=== PATIENT | female | born 1980 | race Caucasian/White ===

== ENCOUNTER 2020-06-01 21:04 | Inpatient (IN) | payer MEDICAID ==
[~2020-06-01] VITALS: Ht 157.5 cm; Wt 68.1 kg
[2020-06-01] MEDS ORDERED: IV NS 0.9% 500 ML BAG IV ONE (22:00)
[2020-06-01] MEDS ORDERED: ONDANSETRON HCL/PF 4 MG/2 ML VIAL IVP ONE (22:00)
[2020-06-01] MEDS ORDERED: MORPHINE SULFATE INJ 2 MG/ML DISP.SYRIN IV ONE (22:00)
[2020-06-01] MEDS ORDERED: LEVOFLOXACIN 750 MG /D5W 150ML PIGGYBACK IV ONE (22:00)
[2020-06-01] MEDS ORDERED: ONDANSETRON HCL/PF 4 MG/2 ML VIAL ONE (23:02)
[2020-06-01] MEDS ORDERED: MORPHINE SULFATE INJ 4 MG/ML DISP.SYRIN ONE (23:02)
[2020-06-01] MEDS ORDERED: LEVOFLOXACIN 750 MG /D5W 150ML 150 ML IV ONE (23:02)
[2020-06-01 23:16] LABS: BASOPHILS # (AUTO) 0.1 /CMM (0.0-0.2); BASOPHILS % (AUTO) 0.3 % (0.0-2.0); EOSINOPHILS % (AUTO) 0.3 % (0.0-6.0); HEMATOCRIT 41 % (33-45); HEMOGLOBIN 13.6 g/dL (11.5-14.8); LYMPHOCYTES # (AUTO) 1.4 /CMM (0.8-4.8); LYMPHOCYTES % (AUTO) 8.1 % (20.0-44.0); MEAN CORPUSCULAR HGB CONC 34 g/dl (31.0-36.0); MEAN CORPUSCULAR VOLUME 89 fL (82-100); MONOCYTES # (AUTO) 1.1 /CMM (0.1-1.30); MONOCYTES % (AUTO) 6.2 % (2.0-12.0); NEUTROPHILS # (AUTO) 14.9 /CMM (1.8-8.9); NEUTROPHILS % (AUTO) 85.1 % (43.0-81.0); PLATELET COUNT (AUTO) 229 /CMM (150-450); RED BLOOD CELL COUNT(AUTO) 4.54 MIL/uL (4.0-5.2); WHITE BLOOD COUNT (AUTO) 17.6 K/uL (4.3-11.0)
--- NOTE | 2020-06-01 23:34 | NUR ---
URINE COLLECTED. SENT TO LAB
[2020-06-01 23:36] LABS: CALCIUM, SERUM 9.2 mg/dL (8.5-10.1); CARBON DIOXIDE 19 mmol/L (21-32); CHLORIDE 101 mmol/L (98-107); CREATININE 1.1 mg/dL (0.6-1.3); GLUCOSE 133 mg/dL (74-106); POTASSIUM 3.7 mmol/L (3.5-5.1); SODIUM SERUM 136 mmol/L (136-145); UREA NITROGEN, BLOOD 32 mg/dL (7-18)
[2020-06-01 23:44] LABS: ALANINE AMINOTRANSFERASE 94 U/L (12-78); ALBUMIN 4.2 g/dL (3.4-5.0); ALKALINE PHOSPHATASE 62 U/L (46-116); ASPARTATE AMINOTRANSFERASE 172 U/L (15-37); BILIRUBIN,DIRECT 0.2 mg/dL (0.0-0.2); BILIRUBIN,TOTAL 0.9 mg/dL (0.2-1.0); TOTAL PROTEIN, SERUM 7.9 g/dL (6.4-8.2)
[2020-06-01 23:54] LABS: BILIRUBIN,URINE NEGATIVE (NEGATIVE); COLOR,URINE YELLOW (YELLOW); LEUKOCYTE ESTERASE ,URINE NEGATIVE (NEGATIVE); NITRITE, URINE NEGATIVE (NEGATIVE); PROTEIN,URINE 30 mg/dl (NEGATIVE); UGLUCOSE NEGATIVE (NEGATIVE); UROBILINOGEN,URINE 0.2 EU/dL (0.2)
[2020-06-02] MEDS ORDERED: ZOLPIDEM TARTRATE 5 MG TABLET PO PRN
[2020-06-02] MEDS ORDERED: ACETAMINOPHEN 325 MG TABLET PO PRN
[2020-06-02] MEDS ORDERED: MAGNESIUM HYDROXIDE 30 ML UDC PO PRN
[2020-06-02] MEDS ORDERED: MAG HYDROX/AL HYDROX/SIMETH 30 ML UDC PO PRN
[2020-06-02] MEDS ORDERED: Z GUARD REMEDY 2 OZ OINT TP PRN
[2020-06-02] MEDS ORDERED: KETOROLAC TROMETHAMINE INJ 30 MG/ML VIAL IV PRN
--- NOTE | 2020-06-02 00:08 | NUR ---
M/S 307-2
--- NOTE | 2020-06-02 00:21 | NUR ---
REPORT GIVEN TO BARRY
[2020-06-02 00:24] VITALS: BP 103/60
[2020-06-02 00:28] LABS: BACTERIA,URINE 2+ /HPF (None Seen); MUCUS,URINE Moderate /LPF (None Seen); SQUAMOUS EPITHELIAL CELL,UR Many /HPF (None Seen); URINE AMORPHOUS URATE Many /HPF (None Seen)
--- NOTE | 2020-06-02 00:35 | NUR ---
pt was transferred to the third floor in stable condition.
[2020-06-02] MEDS: HYDROMORPHONE INJ 2 MG/ML DISP.SYRIN IV PRN ×6 (01:02→21:17)
--- NOTE | 2020-06-02 01:02 | NUR ---
RN MS NOTES PATIENT C/O 9/10 PAIN IN BOTH EARS. PATIENT WAS GIVEN 1MG OF DILAUDID IV. WILL CONTINUE TO MONITOR THE PATIENT.
[2020-06-02] MEDS: IV 1/2NS 1000 ML 1,000 ML IV PRN ×2 (05:01→17:48)
--- NOTE | 2020-06-02 05:41 | NUR ---
RN MS NOTES PATIENT C/O 9/10 PAIN IN BOTH EARS. PATIENT WAS GIVEN 1MG OF DILAUDID IV. WILL CONTINUE TO MONITOR THE PATIENT.
[2020-06-02 05:57] VITALS: BP 103/60
[2020-06-02 06:12] LABS: BASOPHILS % (AUTO) 0.2 % (0.0-2.0); EOSINOPHILS % (AUTO) 1.5 % (0.0-6.0); HEMATOCRIT 38 % (33-45); HEMOGLOBIN 12.8 g/dL (11.5-14.8); LYMPHOCYTES # (AUTO) 1.8 /CMM (0.8-4.8); LYMPHOCYTES % (AUTO) 12.4 % (20.0-44.0); MEAN CORPUSCULAR HGB CONC 34 g/dl (31.0-36.0); MEAN CORPUSCULAR VOLUME 89 fL (82-100); MONOCYTES # (AUTO) 1.1 /CMM (0.1-1.30); MONOCYTES % (AUTO) 7.2 % (2.0-12.0); NEUTROPHILS # (AUTO) 11.6 /CMM (1.8-8.9); NEUTROPHILS % (AUTO) 78.7 % (43.0-81.0); PLATELET COUNT (AUTO) 223 /CMM (150-450); RED BLOOD CELL COUNT(AUTO) 4.28 MIL/uL (4.0-5.2); WHITE BLOOD COUNT (AUTO) 14.7 K/uL (4.3-11.0)
[2020-06-02 06:56] LABS: CALCIUM, SERUM 8.9 mg/dL (8.5-10.1); MAGNESIUM 2.3 mg/dL (1.8-2.4); PHOSPHORUS 3.7 mg/dL (2.5-4.9); POTASSIUM 3.6 mmol/L (3.5-5.1)
[2020-06-02 07:02] LABS: THYROID STIMULATING HORMONE 0.735 uIU/mL (0.358-3.74)
[2020-06-02 07:05] LABS: CREATININE 0.8 mg/dL (0.6-1.3)
--- NOTE | 2020-06-02 07:35 | NUR ---
MS/RN OPENING NOTES PATIENT IS ON BED AWAKE ALERT AND ORIENTED X4. PATIENT IS ON ROOM AIR SATURATION 99%. PATIENT COMPLAINED OF PAIN RATED 8/10. PATIENT IN NO APPARENT RESPIRATORY DISTRESS NOTED. WELL CONTINUE TO MONITOR.
--- NOTE | 2020-06-02 07:48 | NUR ---
MS WET CLEANER MACHINE NOTES PATIENT ADMITTED TO UNIT VIA [facility] AT APPROXIMATELY 0024 BY EMT NATASHA AND REPORT WAS GIVEN BY EMERGENCY ROOM NURSE CAROL. PT WAS ABLE TO STAND UP AND WALK FROM [facility] TO BED. PT ORIENTED TO STARF AND ROOM. PT IS ALERT AND ORIENTED X3. PATIENT IS ABLE TO MAKE HER NEEDS KNOWN. PT IS ON ROOM AIR WITH BREATHING IS EVEN AND UNLABORED. PT HAS AN IV ACCESS ON HER LEFT THUMB. IV ACCESS IS INTACT AND PATENT. WILL CONTINUE TO MONITOR THE PATIENT.
--- NOTE | 2020-06-02 07:53 | NUR ---
MS RN CLOSING NOTES PT IS ALERT AND ORIENTED X3. PATIENT IS ABLE TO MAKE HER NEEDS KNOWN. PT IS ON ROOM AIR WITH BREATHING IS EVEN AND UNLABORED. PT HAS AN IV ACCESS ON HER LEFT THUMB. IV ACCESS IS INTACT AND PATENT. WILL CONTINUE TO MONITOR THE PATIENT.
[2020-06-02 08:00] VITALS: BP 131/57
--- NOTE | 2020-06-02 09:04 | NUR ---
WOUND CARE CONSULT: PT PRESENTS WITH BILATERAL EARS PURULENT DRAINAGE AND ENTIRE EARS RED AND PAINFUL PER PT REPORT. RECOMMEND SURGICAL CONSULT. DR DOUGLAS MAURER NOTIFIED OF CONSULT REQUEST. RECOMMENDATIONS MADE FOR SKIN PROTECTION AND WOUND CARE. DISCUSSED WITH NURSING STAFF.
--- NOTE | 2020-06-02 09:15 | NUR ---
MS/RN NOTES VTE SCORE 3 DR. MALDONADO IS AWARE NO NEW ORDER AT THIS TIME, PER DR. MALDONADO NO NEED FOR CHEMICAL PROPHYLAXIS PATIENT IS AMBULATORY.
--- NOTE | 2020-06-02 15:04 | NUR ---
Housekeeping Associate note: instructional services librarian requested to discuss discharge plan with the patient. Patient stated that she plans to return to her prior living arrangement at [address] [place] [id number]; [phone]. Patient stated she was living in [place] "seven months ago" and moved to [place] where she currently lives with a roommate. Patient does not require transportation to return to her living arrangement. No SS intervention needed at this time, however SS will remain available as needed.
[2020-06-02 16:00] VITALS: BP 109/69
[2020-06-02] MEDS: ONDANSETRON HCL/PF 4 MG/2 ML VIAL IVP PRN ×2 (17:45→23:30)
--- NOTE | 2020-06-02 19:04 | NUR ---
MS/RN NOTES PATIENT IS ON BED ALERT AND ORIENTED X4. PATIENT IN NO APPARENT RESPIRATORY DISTRESS NOTED. ALL DUE MEDICATIONS WAS GIVEN. SEEN AND EXAMINED BY MD WITH ORDERS MADE AND CARRIED OUT. WILL ENDORSED TO ENTRY LEVEL FOR MALDONADO.
[2020-06-02 20:00] VITALS: BP 106/66
--- NOTE | 2020-06-02 20:00 | NUR ---
MS RN OPENING NOTE RECEIVED PT AWAKE IN BED. A/O X4. PT IS STABLE ON ROOM AIR. NO SOB NOTED. NO S/S OF RESPIRATORY DISTRESS. PT IS AMBULATORY WITH BRP. PT HAS NO C/O PAIN AT THIS TIME. IV ACCESS IN LEFT THUMB #24G, RUNNING 1/2 NS @ 75 ML/HR. IV IS INTACT AND PATENT. SAFETY MEASURES MAINTAINED. BED IN LOWEST LOCKED POSITION, HOB ELEVATED, SIDE RAILS UP X2. CALL LIGHT AND TABLE WITHIN REACH. WILL CONTINUE WITH PLAN OF CARE.
--- NOTE | 2020-06-02 21:17 | NUR ---
RN NOTES COMPLAINED BILATERAL EARS PAIN AND HYPERACIDITY, DILAUDID 1MG IV GIVEN FOR PAIN V/S STABLE AND MAALOX FOR HYPERACIDITY,
[2020-06-02] MEDS ORDERED: LEVOFLOXACIN 500 MG /D5W 100ML 500 MG/100 ML PIGGYBACK IV ONE (23:00)
[2020-06-02] MEDS: HYDROCODONE/APAP 5/325MG TABLET PO PRN (23:11)
--- NOTE | 2020-06-02 23:11 | NUR ---
MS RN PAIN PT C/O BURNING PAIN IN RIGHT EAR, RATED 7/10. PT WAS MOANING AND GRASPING SITE. VS STABLE. PER PT REQUEST, ADMINISTERED NORCO 5-325 1 TAB PO Q4H PRN AT THIS TIME. WILL CONTINUE TO MONITOR.
[2020-06-02] MEDS: LEVOFLOXACIN 500 MG /D5W 100ML 500 MG in PREMIX 1 EA IV SCH (23:22)
--- NOTE | 2020-06-02 23:30 | NUR ---
RN NOTES COMPLAINED OF FEELING NAUSEOUS- ZOFRAN 4 MG IV GIVEN ORDERED, V/S STABLE
[2020-06-03] MEDS: HYDROMORPHONE INJ 2 MG/ML DISP.SYRIN IV PRN ×6 (01:07→23:24)
--- NOTE | 2020-06-03 01:22 | NUR ---
RN NOTES COMPLAINED OF BILATERAL EARS PAIN- DILAUDID 1MG IV GIVEN ORDERED, V/S STABLE..
--- NOTE | 2020-06-03 05:40 | NUR ---
RN NOTES COMPLAINED BILATERAL EARS PAIN- DILAUDID 1MG IV GIVEN ORDERED, V/S STABLE
[2020-06-03 06:07] LABS: CALCIUM, SERUM 8.2 mg/dL (8.5-10.1); CREATININE 0.7 mg/dL (0.6-1.3)
--- NOTE | 2020-06-03 06:39 | NUR ---
MS RN CLOSING NOTE PT IS AWAKE IN BED AT THIS TIME. A/0 X4. PT IS STABLE ON ROOM AIR. NO SOB NOTED. NO S/S OF RESPIRATORY DISTRESS. IV ACCESS IS INTACT, PATENT, AND FLUSHING WELL. ALL NEEDS HAVE BEEN MET. PAIN MANAGEMENT ADMINISTERED PER ORDER. SAFETY PRECAUTIONS MAINTAINED AT ALL TIMES. BED IN LOWEST LOCKED POSITION, HOB ELEVATED, SIDE RAILS UP X2. CALL LIGHT AND TABLE WITHIN REACH. WILL ENDORSE TO ONCOMING NURSE FOR CONTINUITY OF CARE.
--- NOTE | 2020-06-03 07:30 | NUR ---
MS RN OPENING NOTE PT IS AWAKE IN BED AT THIS TIME. A/0 X4. PT IS STABLE ON ROOM AIR. NO SOB NOTED. NO S/S OF RESPIRATORY DISTRESS. IV ACCESS IS INTACT, PATENT, AND FLUSHING WELL. PATIENT HAS HEIDY R EAR WOUNDS WITH WRAP. SAFETY PRECAUTIONS MAINTAINED AT ALL TIMES. BED IN LOWEST LOCKED POSITION, HOB ELEVATED, SIDE RAILS UP X2. CALL LIGHT AND TABLE WITHIN REACH. WILL CONTINUE TO MONITOR
[2020-06-03 08:00] VITALS: BP 84/60
--- NOTE | 2020-06-03 08:22 | NUR ---
RN NOTES PATIENT COMPLAINED OF PAIN IN BILATERAL EARS 08/21. WILL GIVE PAIN MEDICATION ORDERED AND WILL REASSESS PAIN.
[2020-06-03] MEDS: HYDROCODONE/APAP 5/325MG TABLET PO PRN ×2 (08:25→13:39)
--- NOTE | 2020-06-03 11:21 | NUR ---
PATIENT COMPLAINED OF PAIN 8/10. GAVE PAIN MEDICATION ORDERED. PATIENT'S CURRENT IV IS IN THE THUMB SHE ASKED US TO REINSERT. PATIENT REFUSED NORMAL IV INSERTION. SHE IS REQUESTING MIDLINE. DR. SHELTON ALREADY AGREED TO MIDLINE. WILL CONTINUE TO MONITOR PAIN
[2020-06-03 11:47] LABS: BASOPHILS % (AUTO) 0.3 % (0.0-2.0); EOSINOPHILS % (AUTO) 1.7 % (0.0-6.0); HEMATOCRIT 37 % (33-45); HEMOGLOBIN 12.4 g/dL (11.5-14.8); LYMPHOCYTES # (AUTO) 1.5 /CMM (0.8-4.8); LYMPHOCYTES % (AUTO) 17.7 % (20.0-44.0); MEAN CORPUSCULAR HGB CONC 34 g/dl (31.0-36.0); MEAN CORPUSCULAR VOLUME 89 fL (82-100); MONOCYTES # (AUTO) 0.7 /CMM (0.1-1.30); NEUTROPHILS # (AUTO) 6.3 /CMM (1.8-8.9); NEUTROPHILS % (AUTO) 72.3 % (43.0-81.0); PLATELET COUNT (AUTO) 191 /CMM (150-450); WHITE BLOOD COUNT (AUTO) 8.7 K/uL (4.3-11.0)
[2020-06-03 16:00] VITALS: BP 92/67
--- NOTE | 2020-06-03 18:40 | NUR ---
MS RN CLOSING NOTES PT IS AWAKE IN BED AT THIS TIME. A/0 X4. PT IS STABLE ON ROOM AIR. NO SOB NOTED. NO S/S OF RESPIRATORY DISTRESS. IV ACCESS IS INTACT, PATENT, AND FLUSHING WELL. PATIENT HAS HEIDY R EAR WOUNDS WITH WRAP WAS CHANGED AND WOUND CARE PROVIDED DURING SHIFT. PAIN MEDICATION GIVEN PER ORDER. ALL NEEDS MET THROUGHOUT SHIFT. SAFETY PRECAUTIONS MAINTAINED AT ALL TIMES. BED IN LOWEST LOCKED POSITION, HOB ELEVATED, SIDE RAILS UP X2. CALL LIGHT AND TABLE WITHIN REACH. WILL ENDORSE TO NEXT SHIFT.
--- NOTE | 2020-06-03 19:27 | NUR ---
RN NOTES PT IS AWAKE IN BED AT THIS TIME. A/0 X4. PT IS STABLE ON ROOM AIR. NO SOB NOTED. NO S/S OF RESPIRATORY DISTRESS. IV ACCESS IS INTACT, PATENT, AND FLUSHING WELL. PATIENT HAS HEIDY R EAR WOUNDS WITH WRAP INTACT. ALL NURSING NEEDS MET AT THIS TIME. SAFETY PRECAUTIONS MAINTAINED AT ALL TIMES. BED IN LOWEST LOCKED POSITION, HOB ELEVATED, SIDE RAILS UP X2. CALL LIGHT AND TABLE WITHIN REACH WILL CONTINUE TO MONITOR.
[2020-06-03 20:00] VITALS: BP 99/67
[2020-06-04] MEDS: LEVOFLOXACIN 500 MG /D5W 100ML 500 MG in PREMIX 1 EA IV SCH ×2 (00:23→23:07)
[2020-06-04] MEDS: HYDROMORPHONE INJ 2 MG/ML DISP.SYRIN IV PRN ×6 (03:30→23:41)
--- NOTE | 2020-06-04 05:52 | NUR ---
RN NOTES PT REFUSED AM LABS NOW WANTS TO HAVE THEM DONE LATER AFTER BREAKFAST. WILL CONTINUE TO MONITOR.
--- NOTE | 2020-06-04 06:29 | NUR ---
RN NOTES PT IS AWAKE IN BED AT THIS TIME. A/0 X4. PT IS STABLE ON ROOM AIR. NO SOB NOTED. NO S/S OF RESPIRATORY DISTRESS. IV ACCESS IS INTACT, PATENT, AND FLUSHING WELL. PATIENT HAS HEIDY R EAR WOUNDS WITH WRAP INTACT. ALL NURSING NEEDS MET AT THIS TIME. SAFETY PRECAUTIONS MAINTAINED AT ALL TIMES. PAIN MANAGEMENT PROVIDED THROUGHOUT SHIFT. BED IN LOWEST LOCKED POSITION, HOB ELEVATED, SIDE RAILS UP X2. CALL LIGHT AND TABLE WITHIN REACH WILL CONTINUE TO MONITOR. Addendum: 06/04/20 at 0630 by FREYA PEÑA RN ZULEMA ENDORSE CARE TO DAY SHIFT NURSE.
--- NOTE | 2020-06-04 07:33 | NUR ---
MS RN OPENING NOTE PT IS AWAKE IN BED AT THIS TIME. A/0 X4. PT IS STABLE ON ROOM AIR. NO SOB NOTED. NO S/S OF RESPIRATORY DISTRESS. IV ACCESS ON LEFT UPPER ARM IS INTACT, PATENT, AND FLUSHING WELL. PATIENT HAS HEIDY R EAR WOUNDS WITH WRAP. SAFETY PRECAUTIONS MAINTAINED AT ALL TIMES. BED IN LOWEST LOCKED POSITION, HOB ELEVATED, SIDE RAILS UP X2. CALL LIGHT AND TABLE WITHIN REACH. PATIENT COMPLAINED OF HEIDY EAR PAIN 8/. PAIN MEDICATION GIVEN. WILL CONTINUE TO MONITOR
--- NOTE | 2020-06-04 07:46 | NUR ---
RN NOTES PATIENT WAS SEEN BY DR. MALDONADO TODAY W/ ORDER TO DO REPEAT UA AND URINE CULTURE; PATIENT IS AMBULATORY AND CONTINENT, ABLE TO COLLECT URINE SPECIMEN. LAB MADE AWARE FOR PICKUP.
[2020-06-04 08:00] VITALS: BP 94/62
--- NOTE | 2020-06-04 09:21 | NUR ---
RN NOTES PATIENT WAS SEEN BY SHIRA OLMOS OF DR. CARPENTER, AND INFORMED THAT DEBRIDEMENT WOULD BE DEFERRED TO AN EENT SPECIALIST; PER CLARIBEL OLMOS, MARCOS HAS BEEN CONTACTED ALREADY AND WILL FOLLOW UP W/ AN EENT SPECIALIST. MIDLINE NURSE ALSO IN THE UNIT AND WILL INSERT MIDLINE ON PATIENT.
[2020-06-04 09:32] LABS: BASOPHILS # (AUTO) 0.1 /CMM (0.0-0.2); BASOPHILS % (AUTO) 0.6 % (0.0-2.0); EOSINOPHILS % (AUTO) 1.8 % (0.0-6.0); HEMATOCRIT 36 % (33-45); HEMOGLOBIN 12.4 g/dL (11.5-14.8); LYMPHOCYTES # (AUTO) 1.8 /CMM (0.8-4.8); MEAN CORPUSCULAR HGB CONC 35 g/dl (31.0-36.0); MEAN CORPUSCULAR VOLUME 89 fL (82-100); MONOCYTES # (AUTO) 0.6 /CMM (0.1-1.30); MONOCYTES % (AUTO) 7.1 % (2.0-12.0); NEUTROPHILS # (AUTO) 6.2 /CMM (1.8-8.9); NEUTROPHILS % (AUTO) 70.5 % (43.0-81.0); PLATELET COUNT (AUTO) 204 /CMM (150-450); RED BLOOD CELL COUNT(AUTO) 4.04 MIL/uL (4.0-5.2); WHITE BLOOD COUNT (AUTO) 8.9 K/uL (4.3-11.0)
[2020-06-04 09:47] LABS: CALCIUM, SERUM 8.3 mg/dL (8.5-10.1); CREATININE 0.7 mg/dL (0.6-1.3); POTASSIUM 4.1 mmol/L (3.5-5.1)
[2020-06-04 13:53] LABS: BILIRUBIN,URINE NEGATIVE (NEGATIVE); LEUKOCYTE ESTERASE ,URINE NEGATIVE (NEGATIVE); NITRITE, URINE NEGATIVE (NEGATIVE); PROTEIN,URINE NEGATIVE (NEGATIVE); UGLUCOSE NEGATIVE (NEGATIVE); UROBILINOGEN,URINE 0.2 EU/dL (0.2)
[2020-06-04 13:54] LABS: COLOR,URINE STRAW (YELLOW)
[2020-06-04 14:41] LABS: BACTERIA,URINE 1+ /HPF (None Seen); SQUAMOUS EPITHELIAL CELL,UR Few /HPF (None Seen); WBC,URINE 0-2 /HPF (0-3)
[2020-06-04 16:00] VITALS: BP 116/76
[2020-06-04] MEDS: ONDANSETRON HCL/PF 4 MG/2 ML VIAL IVP PRN (16:48)
[2020-06-04] MEDS: HYDROCODONE/APAP 5/325MG TABLET PO PRN (17:34)
--- NOTE | 2020-06-04 18:31 | NUR ---
MS RN CLOSING NOTES PT IS AWAKE IN BED AT THIS TIME. A/0 X4. PT IS STABLE ON ROOM AIR. NO SOB NOTED. NO S/S OF RESPIRATORY DISTRESS. IV ACCESS IS IN RIGHT UPPER ARM 18 GAUGE MIDLINE INTACT, PATENT, AND FLUSHING WELL. PATIENT HAS HEIDY R EAR WOUNDS WITH WRAP WAS CHANGED AND WOUND CARE PROVIDED DURING SHIFT. PAIN MEDICATION GIVEN PER ORDER. ALL NEEDS MET THROUGHOUT SHIFT. SAFETY PRECAUTIONS MAINTAINED AT ALL TIMES. BED IN LOWEST LOCKED POSITION, HOB ELEVATED, SIDE RAILS UP X2. CALL LIGHT AND TABLE WITHIN REACH.
[2020-06-04 20:00] VITALS: BP 111/66
--- NOTE | 2020-06-04 20:00 | NUR ---
MS RN OPENING NOTES PT IS AWAKE IN BED AT THIS TIME. A/0 X4. PT IS STABLE ON ROOM AIR. PATIENT IS IN NO RESPIRATORY DISTRESS AT THIS TIME. IV ACCESSES IN RIGHT UPPER ARM GAUGE# 18 AND RIGHT UPPER ARM MIDLINE ARE INTACT, PATENT, AND FLUSHING WELL. PATIENT HAS BILATERAL EAR WOUNDS WITH WRAP. SAFETY PRECAUTIONS ARE IN PLACE. CALL LIGHT IS WITHIN REACH. WILL CONTINUE TO MONITOR THE PATIENT.
--- NOTE | 2020-06-04 23:41 | NUR ---
MS RN NOTES PT WAS HAVING 9/10 THROBBING PAIN IN BOTH EARS. PATIENT WAS GIVEN 1 MG/1ML OF IV DILAUDID. WILL CONTINUE TO MONITOR THE PATIENT.
[2020-06-05] MEDS: HYDROCODONE/APAP 5/325MG TABLET PO PRN (01:57)
--- NOTE | 2020-06-05 01:58 | NUR ---
MS RN NOTES PT C/O 10 THROBBING PAIN IN BILATERAL EARS. PATIENT WAS GIVEN 1 TABLET OF 5-325 MG NORCO BY MOUTH. WILL CONTINUE TO MONITOR THE PATIENT.
[2020-06-05] MEDS: HYDROMORPHONE INJ 2 MG/ML DISP.SYRIN IV PRN ×3 (04:11→12:43)
[2020-06-05 06:43] LABS: BASOPHILS % (AUTO) 0.6 % (0.0-2.0); EOSINOPHILS % (AUTO) 3.4 % (0.0-6.0); HEMATOCRIT 36 % (33-45); HEMOGLOBIN 12.5 g/dL (11.5-14.8); LYMPHOCYTES # (AUTO) 1.9 /CMM (0.8-4.8); MEAN CORPUSCULAR HGB CONC 34 g/dl (31.0-36.0); MEAN CORPUSCULAR VOLUME 90 fL (82-100); MONOCYTES # (AUTO) 0.5 /CMM (0.1-1.30); MONOCYTES % (AUTO) 7.2 % (2.0-12.0); NEUTROPHILS # (AUTO) 4.5 /CMM (1.8-8.9); NEUTROPHILS % (AUTO) 62.8 % (43.0-81.0); PLATELET COUNT (AUTO) 201 /CMM (150-450); RED BLOOD CELL COUNT(AUTO) 4.06 MIL/uL (4.0-5.2); WHITE BLOOD COUNT (AUTO) 7.2 K/uL (4.3-11.0)
[2020-06-05 07:00] LABS: CALCIUM, SERUM 8.6 mg/dL (8.5-10.1); CREATININE 0.7 mg/dL (0.6-1.3); POTASSIUM 4.4 mmol/L (3.5-5.1)
--- NOTE | 2020-06-05 07:00 | NUR ---
MS RN CLOSING NOTES PT IS AWAKE IN BED AT THIS TIME. A/0 X4. PT IS STABLE ON ROOM AIR. PATIENT IS IN NO RESPIRATORY DISTRESS AT THIS TIME. IV ACCESSES IN RIGHT UPPER ARM GAUGE# 18 AND RIGHT UPPER ARM MIDLINE ARE INTACT, PATENT, AND FLUSHING WELL. PATIENT HAS BILATERAL EAR WOUNDS WITH WRAP. SAFETY PRECAUTIONS ARE IN PLACE. CALL LIGHT IS WITHIN REACH. WILL ENDORSE CARE TO DAY SHIFT NURSE.
[2020-06-05 08:00] VITALS: BP 101/61
--- NOTE | 2020-06-05 10:16 | NUR ---
MS/RN OPENING NOTES RECEIVED PATIENT IS ON BED AWAKE ALERT AND ORIENTED X4. PATIENT IS ON ROOM SATURATION 97%. NO COMPLAINED OF PAIN NOTED AT THIS TIME. PATIENT COMPLAINED OF PAIN RATED 9/10. WILL CONTINUE TO MONITOR.
[2020-06-05] MEDS ORDERED: IOHEXOL-300 100 ML VIAL IV ONE (13:09)
[2020-06-05] MEDS ORDERED: CT SWABBABLE VALVE TRANS SET 1 EA INFUS.SET MC ONE (13:09)
[2020-06-05] MEDS ORDERED: IV NS 0.9% 250 ML IV ONE (13:09)
--- NOTE | 2020-06-05 13:22 | NUR ---
MS/RN NOTES DR. MALDONADO ORDER DILAUDID 1.5 MG IV EVERY 4 HOURS. NOTED AND CARRIED OUT.
[2020-06-05] MEDS: IV 1/2NS 1000 ML 1,000 ML IV PRN (15:50)
[2020-06-05] MEDS: HYDROMORPHONE 1 MG/1 ML DISP.SYRIN IV PRN ×2 (16:43→20:48)
--- NOTE | 2020-06-05 17:47 | NUR ---
MS/RN NOTES CD WAS SORTING LIVESTOCK WORKER BY DRIVER UTILITY WORKER AND SENT TO [facility].
[2020-06-05 18:11] VITALS: BP 107/69
--- NOTE | 2020-06-05 18:40 | NUR ---
MS/RN CLOSING NOTES PATIENT IS ON BED ALERT AND ORIENTED X4. PATIENT IN ROOM AIR SATURATION 96%. PATIENT IN NO APPARENT RESPIRATORY DISTRESS NOTED. NO COMPLAINED OF PAIN AT THIS TIME. IV ACCESS AT LEFT ARM #22G AND RIGHT UPPER ARM MIDLINE WITH IV FLUID OF 1/2 NS 1L AT 75 ML/HR ON AND INFUSING WELL. SEEN AND EXAMINED BY MD WITH ORDERS MADE AND CARRIED OUT. ALL DUE MEDICATIONS WAS GIVEN. SAFETY PRECAUTIONS WAS IN PLACED. BED IN LOWEST POSITION AND LOCKED. SIDERAILS UP X2. CALL LIGHT WITHIN REACH. WILL ENDORSED TO SOFTWARE BUSINESS ANALYST FOR MALDONADO.
--- NOTE | 2020-06-05 19:20 | NUR ---
MS RN OPENING NOTES PATIENT IS AWAKE LYING ON HER BED. PATIENT IS ALERT AND ORIENTED X4. PATIENT IS ON ROOM AIR WITH NO RESPIRATORY DISTRESS NOTED. PATIENT HAS AN INTRAVENOUS ACCESS ON HER LEFT ARM GAUGE #22 AND A RIGHT UPPER ARM MIDLINE. BOTH INTRAVENOUS ACCESSES ARE INTACT. SAFETY PRECAUTIONS ARE KEPT IN PLACE. BED IS IN A LOCKED POSITION. SIDERAILS UP X3. CALL LIGHT IS WITHIN REACH OF THE PATIENT. WILL CONTINUE TO MONITOR THE PATIENT.
[2020-06-05 20:00] VITALS: BP 107/65
--- NOTE | 2020-06-05 20:48 | NUR ---
MS NOTES PATIENT WAS HAVING 9/10 THROBBING PAIN IN BOTH EARS. PATIENT WAS GIVEN 1.5 MG OF DILAUDID IV. WILL CONTINUE TO MONITOR THE PATIENT.
[2020-06-05] MEDS ORDERED: LEVOFLOXACIN (250MG) 250 MG TABLET PO SCH (23:00)
[2020-06-05] MEDS: ONDANSETRON HCL/PF 4 MG/2 ML VIAL IVP PRN (23:26)
[2020-06-06] MEDS: HYDROMORPHONE 1 MG/1 ML DISP.SYRIN IV PRN ×6 (00:52→22:04)
--- NOTE | 2020-06-06 00:52 | NUR ---
MS NOTES PATIENT WAS HAVING 9/10 THROBBING PAIN IN BOTH EARS. PATIENT WAS GIVEN 1.5 MG OF DILAUDID IV. WILL CONTINUE TO MONITOR THE PATIENT.
[2020-06-06 07:19] LABS: BASOPHILS % (AUTO) 0.5 % (0.0-2.0); HEMATOCRIT 38 % (33-45); HEMOGLOBIN 13.1 g/dL (11.5-14.8); LYMPHOCYTES # (AUTO) 1.4 /CMM (0.8-4.8); LYMPHOCYTES % (AUTO) 17.9 % (20.0-44.0); MEAN CORPUSCULAR HGB CONC 34 g/dl (31.0-36.0); MEAN CORPUSCULAR VOLUME 89 fL (82-100); MONOCYTES # (AUTO) 0.6 /CMM (0.1-1.30); NEUTROPHILS # (AUTO) 5.7 /CMM (1.8-8.9); NEUTROPHILS % (AUTO) 71.6 % (43.0-81.0); PLATELET COUNT (AUTO) 212 /CMM (150-450); RED BLOOD CELL COUNT(AUTO) 4.28 MIL/uL (4.0-5.2)
--- NOTE | 2020-06-06 07:30 | NUR ---
MS GROVES NOTES PATIENT IS AWAKE LYING ON HER BED. PATIENT IS ALERT AND ORIENTED X4. PATIENT IS ON ROOM AIR WITH NO RESPIRATORY DISTRESS NOTED. PATIENT HAS AN INTRAVENOUS ACCESS ON HER LEFT ARM GAUGE #22 AND A RIGHT UPPER ARM MIDLINE. BOTH INTRAVENOUS ACCESSES ARE INTACT. SAFETY PRECAUTIONS ARE KEPT IN PLACE. BED IS IN A LOCKED POSITION. SIDERAILS UP. CALL LIGHT IS WITHIN REACH OF THE PATIENT. WILL ENDORSE CARE TO DAY SHIFT NURSE. Addendum: 06/06/20 at 0942 by SERAFIN ZAMORA RN MS GROVES CLOSING NOTES
[2020-06-06 07:43] LABS: CALCIUM, SERUM 8.7 mg/dL (8.5-10.1); CREATININE 0.8 mg/dL (0.6-1.3); POTASSIUM 3.9 mmol/L (3.5-5.1)
--- NOTE | 2020-06-06 07:45 | NUR ---
MS/RN OPENING NOTES RECEIVED PATIENT IS ON BED AWAKE ALERT AND ORIENTED X4. PATIENT IS ON ROOM SATURATION 100%. PATIENT COMPLAINED OF PAIN RATED 9/10 WAITING FOR THE SCHEDULE TIME. WILL CONTINUE TO MONITOR.
[2020-06-06 08:00] VITALS: BP 93/54
[2020-06-06] MEDS: ONDANSETRON HCL/PF 4 MG/2 ML VIAL IVP PRN (09:43)
--- NOTE | 2020-06-06 09:47 | NUR ---
MS/RN OPENING NOTES RECEIVED PATIENT IS ON BED AWAKE ALERT AND ORIENTED X4. PATIENT IS ON ROOM SATURATION 100%. PATIENT COMPLAINED OF PAIN RATED 9/10 WAITING FOR THE SCHEDULE TIME. WILL CONTINUE TO MONITOR. Addendum: 06/06/20 at 0949 by SOY GREEN RN ERROR
[2020-06-06] MEDS: HYDROCODONE/APAP 5/325MG TABLET PO PRN (15:40)
[2020-06-06 15:44] VITALS: BP 104/62
[2020-06-06] MEDS ORDERED: VANCOMYCIN 1.25 GM in IV D5W 250 ML IV ONE (17:00)
[2020-06-06] MEDS: PIPERACILLIN /TAZOBACTAM 3.375 G in IV D5W 50 ML IV SCH ×2 (18:29→23:08)
--- NOTE | 2020-06-06 19:30 | NUR ---
MS RN OPENING NOTES PATIENT IS AWAKE LYING IN BED IN HER ROOM. PATIENT IS ALERT AND ORIENTED X 2-3. PATIENT IS STABLE ON ROOM AIR AND IN NO RESPIRATORY DISTRESS. PATIENT IS ABLE TO MAKE HER NEEDS KNOWN. RIGHT UPPER ARM MIDLINE NOTED WHICH IS INTACT, PATENT, AND FLUSHES WELL. SAFETY MEASURES ARE KEPT IN PLACE. BED IS IN A LOCKED POSITION. SIDE RAILS UP. CALL LIGHT IS WITHIN REACH OF THE PATIENT. WILL CONTINUE TO MONITOR THE PATIENT.
[2020-06-06 20:00] VITALS: BP 91/53
--- NOTE | 2020-06-06 22:04 | NUR ---
MS RN NOTES PATIENT C/O 8/10 THROBBING PAIN IN BOTH EARS. PATIENT WAS GIVEN 1.5MG OF DILAUDID IV AT 2204. WILL CONTINUE TO MONITOR THE PATIENT.
[2020-06-07] MEDS: VANCOMYCIN HCL 0.75 GM in IV D5W 250 ML IV SCH ×3 (00:31→17:24)
--- NOTE | 2020-06-07 01:25 | NUR ---
RN MS NOTES PATIENT'S INTRAVENOUS ACCESS ON LEFT ARM WAS IRRITATING HER. INTRAVENOUS ACCESS WAS REMOVED. PATIENT REMAINS WITH A RIGHT UPPER ARM MIDLINE. WILL CONT. TO MONITOR THE PATIENT.
[2020-06-07] MEDS: HYDROMORPHONE 1 MG/1 ML DISP.SYRIN IV PRN ×5 (03:16→21:39)
--- NOTE | 2020-06-07 03:16 | NUR ---
MS RN NOTES PATIENT C/O 8/10 THROBBING PAIN IN BOTH EARS. PATIENT WAS GIVEN 1.5MG OF DILAUDID IV. WILL CONTINUE TO MONITOR THE PATIENT.
[2020-06-07] MEDS: PIPERACILLIN /TAZOBACTAM 3.375 G in IV D5W 50 ML IV SCH ×4 (05:43→23:24)
[2020-06-07 07:10] LABS: BASOPHILS % (AUTO) 0.6 % (0.0-2.0); EOSINOPHILS % (AUTO) 4.4 % (0.0-6.0); HEMATOCRIT 38 % (33-45); HEMOGLOBIN 12.9 g/dL (11.5-14.8); LYMPHOCYTES # (AUTO) 1.4 /CMM (0.8-4.8); LYMPHOCYTES % (AUTO) 20.4 % (20.0-44.0); MEAN CORPUSCULAR HGB CONC 34 g/dl (31.0-36.0); MEAN CORPUSCULAR VOLUME 89 fL (82-100); MONOCYTES # (AUTO) 0.5 /CMM (0.1-1.30); MONOCYTES % (AUTO) 7.1 % (2.0-12.0); NEUTROPHILS # (AUTO) 4.6 /CMM (1.8-8.9); NEUTROPHILS % (AUTO) 67.5 % (43.0-81.0); PLATELET COUNT (AUTO) 227 /CMM (150-450); RED BLOOD CELL COUNT(AUTO) 4.25 MIL/uL (4.0-5.2); WHITE BLOOD COUNT (AUTO) 6.8 K/uL (4.3-11.0)
--- NOTE | 2020-06-07 07:42 | NUR ---
MS RN CLOSING NOTES PATIENT IS AWAKE LYING IN BED IN HER ROOM. PATIENT IS ALERT AND ORIENTED X 2-3. PATIENT IS STABLE ON ROOM AIR AND IN NO RESPIRATORY DISTRESS. PATIENT IS ABLE TO MAKE HER NEEDS KNOWN. RIGHT UPPER ARM MIDLINE NOTED WHICH IS INTACT, PATENT, AND FLUSHES WELL. SAFETY MEASURES ARE KEPT IN PLACE. BED IS IN A LOCKED POSITION. SIDE RAILS UP. CALL LIGHT IS WITHIN REACH OF THE PATIENT. ENDORSED CARE TO DAY SHIFT NURSE.
[2020-06-07 07:55] LABS: CALCIUM, SERUM 8.7 mg/dL (8.5-10.1); CREATININE 0.8 mg/dL (0.6-1.3); POTASSIUM 3.9 mmol/L (3.5-5.1)
--- NOTE | 2020-06-07 07:58 | NUR ---
MS RN OPENING NOTE PATIENT IS IN BED RESTING, PATIENT IS IN NO ACUTE DISTRESS. PATIENT IS ON ROOM AIR. TOLERATING WELL, NO SOB NOTED. PATIENT AMBULATORY. SAFETY PRECAUTIONS ARE ON, BED IS LOCKED IN THE LOWEST POSITION, SIDE RAILS ARE UP, CALL LIGHT WITHIN REACH. WILL CONTINUE TO MONITOR CLOSELY.
[2020-06-07 08:00] VITALS: BP 115/79
--- NOTE | 2020-06-07 12:51 | NUR ---
MR RN NOTE WASTED PARTIAL DOSE OF DILAUDID WITH YANELI KEARNS AT 12:51PM
--- NOTE | 2020-06-07 13:19 | NUR ---
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
[2020-06-07] MEDS: HYDROCODONE/APAP 5/325MG TABLET PO PRN ×2 (15:43→20:49)
[2020-06-07 16:00] VITALS: BP 130/65
--- NOTE | 2020-06-07 17:26 | NUR ---
MS RN NOTE WASTED PARTIAL DOSE OF DILAUDID WITH EDWARD AT 17:26
--- NOTE | 2020-06-07 19:20 | NUR ---
RN opening notes Received Pt from morning nurse. Pt is sitting in bed comfortably watching TV. Pt is alert and orientedX3. Respiration is normal in room air. No SOB. No S/S of distress noted. PACHECO midline # 18 is clean, intact and flushes well. Pt is able to ambulates with a steady gait. Safety precautions is maintained. Bed at low position, brakes locked, side railsupX2, hob elevated and call light is within reach. Will continue to monitor.
[2020-06-07 20:00] VITALS: BP_SYST 103; BP_SYST 98; BP_DIAS 51; BP_DIAS 58
--- NOTE | 2020-06-07 20:11 | NUR ---
MS RN CLOSING NOTE PATIENT IS IN BED RESTING, PATIENT IS IN NO ACUTE DISTRESS. PATIENT IS ON ROOM AIR. TOLERATING WELL, NO SOB NOTED. PATIENT AMBULATORY. SAFETY PRECAUTIONS ARE ON, BED IS LOCKED IN THE LOWEST POSITION, SIDE RAILS ARE UP, CALL LIGHT WITHIN REACH. ENDORSE PATIENT TO NUCLEAR MEDICINE OFFICER NURSE FOR MALDONADO.
--- NOTE | 2020-06-07 20:51 | NUR ---
RN notes Pt is complaining of pain on R and L ears 8/10 on pain scale and requesting pain meds. Administered norco 5/1 tab/po/prn as ordered for pain. Vs is stable. safety precautions is maintained. Will continue to monitor.
--- NOTE | 2020-06-07 21:39 | NUR ---
RN notes Pt is complaining of pain on R and L ear 10/10 on pain scale and requesting dilaudid. Pt informed that norco didn't help with the pain. Administered dilaudid 1.5 mg/iv push/prn as ordered for pain. VS is stable. Safety precautions is maintained. Will continue to monitor.
[2020-06-08] MEDS: VANCOMYCIN HCL 0.75 GM in IV D5W 250 ML IV SCH ×3 (01:06→17:32)
[2020-06-08] MEDS: HYDROMORPHONE 1 MG/1 ML DISP.SYRIN IV PRN ×6 (01:43→21:46)
--- NOTE | 2020-06-08 01:50 | NUR ---
RN notes Wound care provided as ordered. Pt tolerated activity well.
[2020-06-08] MEDS: PIPERACILLIN /TAZOBACTAM 3.375 G in IV D5W 50 ML IV SCH ×2 (05:20→12:09)
--- NOTE | 2020-06-08 06:00 | NUR ---
RN notes Pt is having constipation and requesting meds. Administered milk of magnesia 30 ml/po/prn as ordered for constipation. Will continue to monitor.
--- NOTE | 2020-06-08 06:50 | NUR ---
RN closing notes Pt is sitting in bed comfortably. Pt is alert and orientedX3. Respiration is normal in room air. No SOB. No S/S of distress noted. VS is stable. PACHECO midline # 18 is clean, intact and flushes well. Pt is able to ambulates with a steady gait. Kept Pt clean, dry and comfortable. Safety precautions is maintained. Bed at low position, brakes locked, side railsupX2, hob elevated and call light is within reach. Will endorse to morning nurse for MALDONADO.
--- NOTE | 2020-06-08 08:00 | NUR ---
RN OPENING NOTES Patient A&Ox3. VS WNL. Awake and responsive. Sitting in bed. Seen to be ambulating with steady gait. IV fluids refused x3. C/o mild pain at this time, reassured pt that will follow up when next pain medicine is due. Pt. had dressing to bilateral ears off stating she wants them to be open to air for a while. Will clean and apply new dressing this AM.
[2020-06-08 08:39] VITALS: BP 96/62
[2020-06-08] MEDS: HYDROCODONE/APAP 5/325MG TABLET PO PRN (10:43)
[2020-06-08] MEDS: CEFTRIAXONE 1 G in IV D5W 50 ML IV SCH (18:34)
--- NOTE | 2020-06-08 18:52 | NUR ---
RN MS NOTES PT IN BED, AWAKE, ALERT AND ORIENTED, PAIN MEDS GIVEN FOR PAIN MANAGEMENT, NOT IN DISTRESS, AMBULATES WITH STEADY GAIT, SEEN BY DR. COLE TODAY, PLAN OF CARE DISCUSSED WITH PT, VERBALIZED UNDERSTANDING, AWAITING BED AT [facility], SKIRT PANEL ASSEMBLER FOLLOWING, PM MEDS GIVEN, ALL NEEDS ATTENDED, MIDLINE AT RIGHT UPPER ARM INTACT AND PATENT.
--- NOTE | 2020-06-08 19:32 | NUR ---
MS RN OPENING NOTE PATIENT A/OX4 ABLE TO MAKE NEEDS KNOWN. ON ROOM AIR; TOLERATING WELL WITH NO SOB. DRESSING ON BILATERAL WOUNDS; KEPT C/D/I. PACHECO MIDLINE #18 INFUSING CEFTRIAXONE @ 100 ML/HR. SAFETY MEASURES IN PLACE: BED IN LOWEST LOCKED POSITION, BED ALARMS ON, CALL LIGHT WITHIN EASY REACH. PATIENT IS STABLE AT THIS TIME; WILL CONTINUE PLAN OF CARE.
[2020-06-08 20:49] VITALS: BP 105/57
[2020-06-09] MEDS: VANCOMYCIN HCL 0.75 GM in IV D5W 250 ML IV SCH ×3 (01:51→17:08)
[2020-06-09] MEDS: HYDROMORPHONE 1 MG/1 ML DISP.SYRIN IV PRN ×6 (01:52→23:12)
[2020-06-09] MEDS: HYDROCODONE/APAP 5/325MG TABLET PO PRN ×3 (03:57→17:21)
--- NOTE | 2020-06-09 07:52 | NUR ---
MS/RN NOTES RECEIVED PATIENT ON BED AWAKE ALERT X4. PATIENT IS ON ROOM AIR SATURATING WELL. PATIENT IN NO APPARENT DISTRESS NOTED. NO COMPLAINED OF PAIN NOTED AT THIS TIME. WILL CONTINUE TO MONITOR.
[2020-06-09 08:46] VITALS: BP 98/70
[2020-06-09 11:38] LABS: CALCIUM, SERUM 8.8 mg/dL (8.5-10.1); CREATININE 0.7 mg/dL (0.6-1.3); POTASSIUM 3.8 mmol/L (3.5-5.1)
--- NOTE | 2020-06-09 15:00 | NUR ---
MED/NBA PLAYER NOTES PATIENT IS REQUESTING TO HAVE A SILVADENE CREAM ON BOTH EARS, ESPECIALLY THE RIGHT EAR WHICH PATIENT IS REPORTING TO HAVE A BURNING PAIN. PER PATIENT, SILVADENE HELPED WITH THE PROBLEM BASED ON PREVIOUS EXPERIENCE. TEXTED AND NOTIFIED DR. DOUGLAS SHOEMAKERABOUT THE REQUEST AND DR. COLE RESPONDED TO ASK WOUND CARE NURSE IF SILVADENE CREAM IS OKAY. CALLED WOUND CARE NURSE'S LINE AND SAID THAT NURSE IS GONE FOR THE DAY. RELAYED INFO TO DR. COLE AND PER MD, ASK WOUND CARE NURSE TOMORROW IF SILVADENE IS OKAY. WILL CONTINUE TO MONITOR.
[2020-06-09 16:13] VITALS: BP 98/64
[2020-06-09] MEDS: CEFTRIAXONE 1 G in IV D5W 50 ML IV SCH (18:07)
--- NOTE | 2020-06-09 19:00 | NUR ---
MED/CIGARETTE PACKAGE EXAMINER NOTES Pt is sitting in bed comfortably. Pt is alert and orientedX4. Respiration is normal in room air. No SOB. No S/S of distress noted. V/S within normal. PACHECO midline # 18 is clean, intact and flushes well. Patient is ambulatory with a steady gait. PRN pain meds- Dilaudid 1.5ml and Justice 5/325 mg given PRN for pain management. Kept patient clean, dry and comfortable. Safety precautions is maintained. Bed at low position, brakes locked, side railsupX2, hob elevated and call light is within reach. Will endorse to evening nurse for MALDONADO.
--- NOTE | 2020-06-09 19:45 | NUR ---
MS RN NOTES RECEIVED ON BED A/O X4,AMBULATORY,BREATHING REGULAR,NOT IN ANY FORM OF DISTRESS,WITH RIGHT UPPER ARM MIDLINE,INTACT AND PATENT.PAIN TO BOTH EARS DOWN TO 6/10,TOLERATED.IV FLUID OFF AT THE MOMENT PER PATIENT REQUEST.CALL LIGHT IN REACH,NEEDS ANTICIPATED.
[2020-06-09 20:00] VITALS: BP 92/60
--- NOTE | 2020-06-09 20:45 | NUR ---
MS RN NOTES OFFERED DRESSING CHANGE ON BOTH EARS BUT SHE WANTS IT AROUND 2330.IVF NOW RE STARTED.
--- NOTE | 2020-06-09 23:12 | NUR ---
MS RN NOTES PAIN MANAGEMENT C/O PAIN ON BOTH EARS,DILAUDID 1.5MG IV GIVEN ORDERED.WILL MONITOR FOR RELIEF.
[2020-06-10] MEDS: VANCOMYCIN HCL 0.75 GM in IV D5W 250 ML IV SCH ×2 (01:05→09:08)
[2020-06-10] MEDS: HYDROMORPHONE 1 MG/1 ML DISP.SYRIN IV PRN ×4 (03:17→15:17)
--- NOTE | 2020-06-10 03:17 | NUR ---
MS RN NOTES PAIN MANAGEMENT AWAKE,C/O PAIN ON BOTH EARS 8/10 ON PAIN SCALE,DILAUDID 1.5MG IV GIVEN ORDERED.
--- NOTE | 2020-06-10 03:30 | NUR ---
MS RN NOTES DRESSING APPLIED ON BOTH EARS,WITH XEROFORM,SECURED WITH KERLIX.
--- NOTE | 2020-06-10 06:21 | NUR ---
MS RN NOTES SLEPT WITH INTERVALS,PAIN MANAGEMENT EFFECTIVE,IVF REFUSED.DRESSING TO BOTH EARS INTACT AND DRY.FOR D/C PLANNING,CASE MANAGEMENT FOR PLACEMENT.CALL LIGHT IN REACH,NEEDS ATTENDED.
--- NOTE | 2020-06-10 07:25 | NUR ---
MS RN OPENING NOTE PATIENT A/OX4 ABLE TO MAKE NEEDS KNOWN. ON ROOM AIR; TOLERATING WELL WITH NO SOB. DRESSING ON BILATERAL WOUNDS; KEPT C/D/I. PACHECO MIDLINE #18 PATENT AND INTACT. SAFETY MEASURES IN PLACE: BED IN LOWEST LOCKED POSITION, BED ALARMS ON, CALL LIGHT WITHIN EASY REACH. PATIENT IS STABLE AT THIS TIME; WILL CONTINUE PLAN OF CARE.
[2020-06-10 08:00] VITALS: BP 89/62
--- NOTE | 2020-06-10 11:49 | NUR ---
RN NOTES PATIENT WAS SEEN BY MD. MD ANSWERED PATIENT QUESTIONS AND STATED PATIENT COULD BE DISCHARGED FROM HOSPITAL. WILL START DISCHARGE PROCESS.
--- NOTE | 2020-06-10 17:52 | NUR ---
LENS SILVERER NOTES RECEIVED ORDER FOR DISCHARGE. PATIENT IS A/O X4. PATIENT IS TOLERATING ROOM AIR. NO SX OF DISTRESS NOTED. PATIENT'S IV WAS REMOVED AND TOLERATED WELL. ID BAND REMOVED. WOUND PICTURES WERE TAKEN AND FILED IN THE CHART. PATIENT IS LEAVING VIA PRIVATE CAR DRIVING HERSELF. PATIENT LEFT IN STABLE CONDITION.
== END 2020-06-10 17:47 | disposition short-term general hospital (02) | DRG 720 ==
LOC: ER 21:10 → MED 06-02 00:09
PROVIDERS: ADMIT Student in an Organized Health Care Education/Training Program
PROC: 02HV33Z Insertion of Infusion Device into Superior Vena Cava, Percutaneous Approach (ICD-10-PCS; principal; 2020-06-04)
DX: A41.9 Sepsis, unspecified organism (principal); N17.0 Acute kidney failure with tubular necrosis; E87.2 Acidosis; B19.20 Unspecified viral hepatitis C without hepatic coma; F42.9 Obsessive-compulsive disorder, unspecified; H60.13 Cellulitis of external ear, bilateral; H61.033 Chondritis of external ear, bilateral; N39.0 Urinary tract infection, site not specified; Z20.822 Contact with and (suspected) exposure to COVID-19; Z86.14 Personal history of Methicillin resistant Staphylococcus aureus infection; S01.312A Laceration without foreign body of left ear, initial encounter; S01.311A Laceration without foreign body of right ear, initial encounter; Y92.009 Unspecified place in unspecified non-institutional (private) residence as the place of occurrence of the external cause; F42.4 Excoriation (skin-picking) disorder; F60.5 Obsessive-compulsive personality disorder; F11.11 Opioid abuse, in remission; F17.200 Nicotine dependence, unspecified, uncomplicated; B96.89 Other specified bacterial agents as the cause of diseases classified elsewhere
CPT/HCPCS: 36410; 36415; 70481-TC; 71045-TC; 80048-TC; 80061-TC; 80076-TC; 80202-TC; 81001; 83605-TC; 83735-TC; 84100-TC; 84443-TC; 84484-TC; 84703-TC; 85025-TC; 85730-TC; 87040-TC; 87070-TC; 87081-TC; 87086-TC; 87186-TC; 93307-TC; A4216; A6253; A6403; A6407; C9803; G0378; J0696; J1170; J1956; J2270; J2405; J2543; J3370; J3490; J7030; J7040; J7050; J7060; Q9967